=== PATIENT | male | born 1940 | race Caucasian/White ===

== ENCOUNTER 2019-04-06 06:00 | Emergency (ER) | payer MEDICARE, OTHER ==
[~2019-04-06] VITALS: Ht 172.7 cm; Wt 78.6 kg
[~2019-04-06 06:00] MED LIST: ALLO100T PO; AMLO10TA13 PO; ASPI-1053 PO; COLC0.6T69 PO; CYCL-1 PO; FURO-150 PO; METO-467 PO; NITR0.4T51 SL; SIMV-42 PO; TICA90TA PO
--- NOTE | 2019-04-06 07:13 | NUR ---
Attempted PIV for blood draw x2 without success. Called laboratory; clinical laboratory technologist to come draw labs.
[2019-04-06 07:38] LABS: BASOPHILS # (AUTO) 0.1 X10'3 (0-0.2); BASOPHILS % (AUTO) 0.7 % (0-1); EOSINOPHILS # (AUTO) 0.4 X10'3 (0-0.9); EOSINOPHILS % (AUTO) 3.3 % (0-6); HEMATOCRIT 43.3 % (42.0-52.0); HEMOGLOBIN 14.8 g/dl (14.0-17.9); LYMPHOCYTES # (AUTO) 1.5 X10'3 (1.1-4.8); LYMPHOCYTES % (AUTO) 13.9 % (21-51); MEAN CORPUSCULAR HEMOGLOBIN 31.6 PG (27.0-31.0); MEAN CORPUSCULAR HGB CONC 34.2 g/dL (33.0-36.5); MEAN CORPUSCULAR VOLUME 92.6 FL (78-98); MEAN PLATELET VOLUME 8.6 FL (7.4-10.4); MONOCYTES # (AUTO) 0.6 X10'3 (0-0.9); MONOCYTES % (AUTO) 5.7 % (2-12); NEUTROPHILS # (AUTO) 8.1 X10'3 (1.8-7.7); NEUTROPHILS % (AUTO) 76.4 % (42-75); PLATELET COUNT 178 X10'3 (140-440); RED BLOOD COUNT 4.67 X10'6 (4.70-6.10); RED CELL DISTRIBUTION WIDTH 14.4 % (11.5-14.5); WHITE BLOOD COUNT 10.7 X10'3 (4.5-11.0)
[2019-04-06 07:48] LABS: ALANINE AMINOTRANSFERASE 43 U/L (12-78); ALBUMIN 3.7 G/DL (3.4-5.0); ALBUMIN/GLOBULIN RATIO 1.1 (1.1-1.5); ALKALINE PHOSPHATASE 88 IU/L (46-116); ANION GAP 11 (8-16); ASPARTATE AMINO TRANSFERASE 33 U/L (10-37); BILIRUBIN,TOTAL 0.6 MG/DL (0.1-1.0); BLOOD UREA NITROGEN 16 MG/DL (7-18); BUN/CREATININE RATIO 12.2 (5.4-32.0); CALCIUM 8.7 MG/DL (8.5-10.1); CHLORIDE 106 MMOL/L (99-107); CREATININE 1.31 MG/DL (0.60-1.10); GLUCOSE 124 MG/DL (70-104); POTASSIUM 4.4 MMOL/L (3.5-5.1); SODIUM 142 MMOL/L (135-145); TOTAL CARBON DIOXIDE 24.8 MMOL/L (24-32); TOTAL PROTEIN 7.2 G/DL (6.4-8.2); eGFR 53 ML/MIN
[2019-04-06 08:36] LABS: D-DIMER 1.32 MG/L FEU (0-0.50)
[2019-04-06] MEDS ORDERED: iohexol 350MG/ML 100ml bottle IV ONE (09:15)
--- NOTE | 2019-04-06 09:24 | NUR ---
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
[2019-04-06] MEDS ORDERED: FURO-150 PO (09:31)
--- NOTE | 2019-04-06 09:38 | NUR ---
pt returns from ct
[2019-04-06 10:43] VITALS: BP 183/97
== END 2019-04-06 10:48 | disposition home or self-care (01) ==
LOC: ER 06:01
DX: I48.91 Unspecified atrial fibrillation (principal); M54.6 Pain in thoracic spine; E78.00 Pure hypercholesterolemia, unspecified; I10 Essential (primary) hypertension; I25.2 Old myocardial infarction; G89.29 Other chronic pain; Z95.1 Presence of aortocoronary bypass graft; Z79.82 Long term (current) use of aspirin; Z79.899 Other long term (current) drug therapy
CPT/HCPCS: 36415; 71045; 71275; 80053; 83880; 84145; 84484; 85025; 85379; 93005; 99284; Q9967

== ENCOUNTER 2020-05-03 07:58 | Day surgery (SDC) | payer OTHER ==
[~2020-05-03] VITALS: Ht 172.7 cm; Wt 74.0 kg
[~2020-05-03 07:58] MED LIST changes: +APIX5TAB3 PO; -ASPI-1053 PO; -COLC0.6T69 PO; +COLC0.6T72 PO; -CYCL-1 PO
[2020-05-03 08:20] VITALS: BP 139/81
[2020-05-03 08:30] VITALS: BP 139/81
[2020-05-03 09:30] VITALS: BP 173/71
[2020-05-03 09:45] VITALS: BP 131/98
[2020-05-03 10:00] VITALS: BP 152/69
[2020-05-03 10:15] VITALS: BP 134/81
[2020-05-03 10:57] LABS: GLUCOSE,BODY FLUID 101 MG/DL; LDH,BODY FLUID 129 U/L; TOTAL PROTEIN,BODY FLUID 3.5 G/DL
[2020-05-03 11:39] LABS: BFSOURCE RIGHT PLEURAL FLD
[2020-05-03 11:46] LABS: EOSINOPHILS,BODY FLUID 1 %; LYMPHOCYTES,BODY FLUID 83 %; MONOCYTES,BODY FLUID 7 %; NEUTROPHILS,BODY FLUID 9 %
[2020-05-03 11:48] LABS: BFAPPEAR HAZY
[2020-05-03 11:49] LABS: BF RBC COUNT 2150 /CU MM; BF WBC COUNT 1090 /CU MM (0-1000); BFCOLOR YELLOW; BFVOLUME 50 ML
== END 2020-05-03 10:18 | disposition home or self-care (01) ==
LOC: SSTAY O 07:58
PROVIDERS: ATTEND Radiology Vascular & Interventional Radiology
DX: J90 Pleural effusion, not elsewhere classified (principal); I25.10 Atherosclerotic heart disease of native coronary artery without angina pectoris; I10 Essential (primary) hypertension; E78.00 Pure hypercholesterolemia, unspecified; I25.2 Old myocardial infarction; G89.29 Other chronic pain; M10.9 Gout, unspecified; Z95.1 Presence of aortocoronary bypass graft; Z79.01 Long term (current) use of anticoagulants; Z79.899 Other long term (current) drug therapy; Z72.89 Other problems related to lifestyle; Z87.891 Personal history of nicotine dependence; Z98.890 Other specified postprocedural states
CPT/HCPCS: 32555; 71045; 82945; 83615; 83986; 84157; 89051

== ENCOUNTER 2020-06-14 08:26 | Day surgery (SDC) | payer OTHER ==
[~2020-06-14] VITALS: Ht 172.7 cm; Wt 72.7 kg
[~2020-06-14 08:26] MED LIST changes: -COLC0.6T72 PO; -NITR0.4T51 SL; -TICA90TA PO
[2020-06-14 08:48] VITALS: BP 128/62
[2020-06-14] MEDS ORDERED: APIX5TAB5 PO (09:01)
[2020-06-14] MEDS ORDERED: albumin 25% 100mL bottle x 1 IV PRN (09:20)
[2020-06-14 09:30] VITALS: BP 151/85
[2020-06-14 09:38] VITALS: BP 150/74
[2020-06-14 09:45] VITALS: BP 129/53
[2020-06-14 10:00] VITALS: BP 150/47
[2020-06-14 10:17] VITALS: BP 146/51
== END 2020-06-14 10:26 | disposition home or self-care (01) ==
LOC: SSTAY O 08:26
PROVIDERS: ATTEND Radiology Vascular & Interventional Radiology
DX: J90 Pleural effusion, not elsewhere classified (principal); I10 Essential (primary) hypertension; I25.10 Atherosclerotic heart disease of native coronary artery without angina pectoris; E78.5 Hyperlipidemia, unspecified; E78.00 Pure hypercholesterolemia, unspecified; I25.2 Old myocardial infarction; G89.29 Other chronic pain; M54.9 Dorsalgia, unspecified; M10.9 Gout, unspecified; Z87.891 Personal history of nicotine dependence; Z72.89 Other problems related to lifestyle; Z79.899 Other long term (current) drug therapy; Z98.890 Other specified postprocedural states; Z95.1 Presence of aortocoronary bypass graft
CPT/HCPCS: 32555; 71045

== ENCOUNTER 2020-09-18 14:16 | Outpatient (CLI) | payer MEDICARE, OTHER ==
[~2020-09-18] VITALS: Ht 170.2 cm; Wt 79.4 kg
[~2020-09-18 14:16] MED LIST changes: -APIX5TAB3 PO; +APIX5TAB5 PO
[2020-09-18 14:48] LABS: ABG BASE EXCESS -0.3 mmol/L (-2.0-2.0); ABG HCO3 21.6 mmol/L (22.0-26.0); ABG OXYGEN SATURATION 95.7 % (94-97); ABG PCO2 (T) 28.4 mmHg (35.0-48.0); ALLEN'S TEST POSITIVE; FCOHb 0.8 % (0.0-3.9); FMetHb 0.1 % (0.0-1.5); FO2Hb 94.8 % (94-97); TOTAL HEMOGLOBIN 14.6 G/dl (14.0-18.0)
[2020-09-18] MEDS ORDERED: albuterol 2.5 MG/3 ML nebule NEB ONE (15:50)
== END 2020-09-18 23:59 | disposition home or self-care (01) ==
LOC: RT 14:16
PROVIDERS: ATTEND Internal Medicine Pulmonary Disease
DX: R06.02 Shortness of breath (principal)
CPT/HCPCS: 36600; 82803; 85018; 94060; 94727; 94729; 94760

== ENCOUNTER 2020-11-14 07:25 | Emergency (ER) | payer OTHER, MEDICARE ==
[~2020-11-14] VITALS: Ht 172.7 cm; Wt 70.5 kg
--- NOTE | 2020-11-14 09:02 | NUR ---
Unable to start IV, labs were obtained. MD Tena informed of inability to start line, received VO may hold off starting line for now.
[2020-11-14 09:17] LABS: BASOPHILS # (AUTO) 0.1 X10'3 (0-0.2); BASOPHILS % (AUTO) 0.7 % (0-1); EOSINOPHILS # (AUTO) 0.2 X10'3 (0-0.9); EOSINOPHILS % (AUTO) 2.4 % (0-6); HEMATOCRIT 42.6 % (42.0-52.0); HEMOGLOBIN 14.1 g/dl (14.0-17.9); LYMPHOCYTES # (AUTO) 0.9 X10'3 (1.1-4.8); LYMPHOCYTES % (AUTO) 11.3 % (21-51); MEAN CORPUSCULAR HEMOGLOBIN 29.9 PG (27.0-31.0); MEAN CORPUSCULAR HGB CONC 33.2 g/dL (33.0-36.5); MEAN CORPUSCULAR VOLUME 89.9 FL (78-98); MEAN PLATELET VOLUME 8.1 FL (7.4-10.4); MONOCYTES # (AUTO) 0.6 X10'3 (0-0.9); MONOCYTES % (AUTO) 7.5 % (2-12); NEUTROPHILS # (AUTO) 6.3 X10'3 (1.8-7.7); NEUTROPHILS % (AUTO) 78.1 % (42-75); PLATELET COUNT 204 X10'3 (140-440); RED BLOOD COUNT 4.73 X10'6 (4.70-6.10); RED CELL DISTRIBUTION WIDTH 18.1 % (11.5-14.5)
[2020-11-14 09:28] LABS: ALBUMIN 3.3 G/DL (3.4-5.0); ANION GAP 11 (8-16); BLOOD UREA NITROGEN 15 MG/DL (7-18); BUN/CREATININE RATIO 12.1 (5.4-32.0); CALCIUM 8.8 MG/DL (8.5-10.1); CHLORIDE 107 MMOL/L (99-107); CREATININE 1.24 MG/DL (0.60-1.10); GLUCOSE 102 MG/DL (70-104); POTASSIUM 4.4 MMOL/L (3.5-5.1); SODIUM 141 MMOL/L (135-145); TOTAL CARBON DIOXIDE 22.6 MMOL/L (24-32); eGFR 56 ML/MIN
[2020-11-14] MEDS ORDERED: albuterol 2.5 MG/3 ML nebule NEB ONE (09:45)
[2020-11-14] MEDS ORDERED: albuterol 2.5 MG/3 ML nebule ONE (10:08)
[2020-11-14] MEDS ORDERED: ALBU8HFA PO (10:24)
[2020-11-14 10:41] VITALS: BP 139/60
== END 2020-11-14 10:51 | disposition home or self-care (01) ==
LOC: ER 07:25
DX: R06.02 Shortness of breath (principal); Z20.822 Contact with and (suspected) exposure to COVID-19; J90 Pleural effusion, not elsewhere classified; I25.10 Atherosclerotic heart disease of native coronary artery without angina pectoris; E78.00 Pure hypercholesterolemia, unspecified; I10 Essential (primary) hypertension; I25.2 Old myocardial infarction; G89.29 Other chronic pain; M10.9 Gout, unspecified; Z98.890 Other specified postprocedural states; Z72.89 Other problems related to lifestyle; Z79.899 Other long term (current) drug therapy
CPT/HCPCS: 36415; 71045; 80048; 84484; 85025; 87635; 93005; 93308; 94640; 99285; C9803; 94760

== ENCOUNTER 2020-11-28 03:27 | Inpatient (IN) | payer OTHER, MEDICARE ==
[~2020-11-28] VITALS: Ht 175.3 cm; Wt 77.2 kg
[~2020-11-28 03:27] MED LIST changes: +ALBU8HFA PO
--- NOTE | 2020-11-28 04:00 | NUR ---
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 Addendum: 11/28/20 at 0417 by SRINIVAS PT IS IN ATRIAL FIB IN 50-60 RANGE CONSISTENTLY; TAKES BLOOD THINNER
[2020-11-28 04:16] LABS: ALANINE AMINOTRANSFERASE 22 U/L (12-78); ALBUMIN 3.2 G/DL (3.4-5.0); ALBUMIN/GLOBULIN RATIO 0.8 (1.1-1.5); ALKALINE PHOSPHATASE 131 IU/L (46-116); ANION GAP 10 (8-16); ASPARTATE AMINO TRANSFERASE 29 U/L (10-37); BILIRUBIN,TOTAL 0.6 MG/DL (0.1-1.0); BLOOD UREA NITROGEN 17 MG/DL (7-18); BUN/CREATININE RATIO 12.8 (5.4-32.0); CALCIUM 8.7 MG/DL (8.5-10.1); CHLORIDE 109 MMOL/L (99-107); CREATININE 1.33 MG/DL (0.60-1.10); GLUCOSE 122 MG/DL (70-104); POTASSIUM 4.3 MMOL/L (3.5-5.1); SODIUM 142 MMOL/L (135-145); TOTAL CARBON DIOXIDE 23.3 MMOL/L (24-32); TOTAL PROTEIN 7.1 G/DL (6.4-8.2); eGFR 52 ML/MIN
[2020-11-28 04:20] LABS: HEMOGLOBIN 13.2 g/dl (14.0-17.9); RED BLOOD COUNT 4.48 X10'6 (4.70-6.10); WHITE BLOOD COUNT 8.5 X10'3 (4.5-11.0)
[2020-11-28 04:21] LABS: HEMATOCRIT 40.9 % (42.0-52.0); MEAN CORPUSCULAR HEMOGLOBIN 29.4 PG (27.0-31.0); MEAN CORPUSCULAR HGB CONC 32.2 g/dL (33.0-36.5); MEAN CORPUSCULAR VOLUME 91.4 FL (78-98); MEAN PLATELET VOLUME 7.8 FL (7.4-10.4); NEUTROPHILS % (AUTO) 76.5 % (42-75); PLATELET COUNT 219 X10'3 (140-440)
[2020-11-28 04:22] LABS: BASOPHILS % (AUTO) 0.7 % (0-1); EOSINOPHILS % (AUTO) 1.5 % (0-6); LYMPHOCYTES # (AUTO) 1.2 X10'3 (1.1-4.8); LYMPHOCYTES % (AUTO) 14.5 % (21-51); MONOCYTES % (AUTO) 6.8 % (2-12); NEUTROPHILS # (AUTO) 6.5 X10'3 (1.8-7.7)
[2020-11-28 04:23] LABS: MAGNESIUM 2.1 MG/DL (1.5-2.4); TROPONIN I < 0.04 NG/ML (0.0-0.05)
[2020-11-28 04:26] LABS: BASOPHILS # (AUTO) 0.1 X10'3 (0-0.2); EOSINOPHILS # (AUTO) 0.1 X10'3 (0-0.9); MONOCYTES # (AUTO) 0.6 X10'3 (0-0.9)
[2020-11-28] MEDS ORDERED: furosemide 10 MG/1 ML 10ml inj IV ONE (06:10)
[2020-11-28] MEDS ORDERED: morphine 2 MG/ML inj. syringe IV PRN ×2 (07:30)
[2020-11-28] MEDS ORDERED: HYDROcodone/acetaminophen 10/325mg tab PO PRN (07:30)
[2020-11-28] MEDS ORDERED: potassium Cl 40MEQ/1/2NS 520ml 520 ML IV PRN ×2 (07:30)
[2020-11-28] MEDS ORDERED: potassium Cl 20 mEq SR tablet PO PRN ×2 (07:30)
[2020-11-28] MEDS ORDERED: bisacodyl 10mg suppository rectal RC PRN (07:30)
[2020-11-28] MEDS ORDERED: magnesium 4gm in 100ml NS 100 ML IV PRN (07:30)
[2020-11-28] MEDS ORDERED: magnesium 2GM in 50ml NS 50 ML IV PRN (07:30)
[2020-11-28] MEDS ORDERED: ondansetron/PF 4mg/2ml inj IV PRN (07:30)
[2020-11-28] MEDS ORDERED: acetaminophen 325mg tablet PO PRN ×2 (07:30)
[2020-11-28] MEDS ORDERED: albuterol 2.5 MG/3 ML nebule NEB PRN (07:30)
[2020-11-28] MEDS ORDERED: HYDROcodone/acetaminophen 5mg/325mg tablet PO PRN (07:30)
[2020-11-28] MEDS ORDERED: PERFLUTREN PROTEIN-A MICROSPHR (Optison) 0.22 MG/ML 3ML VIAL IV ONE (07:30)
[2020-11-28] MEDS: K and/or MAG REPLACEMENT MC SCH ×2 (08:00→20:00)
[2020-11-28] MEDS: metoprolol tartrate 50mg tablet PO SCH (08:00)
[2020-11-28] MEDS: allopurinol 100mg tablet PO SCH (10:31)
[2020-11-28] MEDS: amLODIPine 5mg tablet PO SCH (10:31)
[2020-11-28] MEDS: atorvastatin 10mg tablet PO SCH (10:32)
[2020-11-28] MEDS: docusate sod 100mg capsule PO SCH ×2 (10:33→20:52)
[2020-11-28] MEDS: furosemide 10 MG/1 ML 10ml inj IV SCH ×2 (10:34→20:00)
[2020-11-28] MEDS ORDERED: POTA10TA PO (12:25)
--- NOTE | 2020-11-28 14:44 | NUR ---
Patient in room ED 13. I have received report from Shahida HOWELL and had the opportunity to ask questions and assume patient care.
[2020-11-28 16:13] VITALS: BP 152/69
[2020-11-28 18:00] VITALS: BP 99/66
--- NOTE | 2020-11-28 18:08 | NUR ---
Problems reprioritized. Patient report given, questions answered & plan of care reviewed with Wendy HOWELL.
--- NOTE | 2020-11-28 18:25 | NUR ---
Patient in room U 3012. I have received report from Salty HOWELL and had the opportunity to ask questions and assume patient care. Addendum: 11/28/20 at 1831 by Wendy Loepz RN CORRECTION-REPORT FROM JAVID HOWELL
[2020-11-28] MEDS: ipratropium/albuterol 3ml nebule NEB PRN (20:04)
[2020-11-29 02:00] VITALS: BP 104/65
--- NOTE | 2020-11-29 05:48 | NUR ---
[id number] Chung Hoover-xiao tx requested please. Wendy castro [phone]
[2020-11-29] MEDS: ipratropium/albuterol 3ml nebule NEB PRN (05:54)
[2020-11-29 06:00] VITALS: BP 118/67
[2020-11-29 06:40] LABS: BASOPHILS # (AUTO) 0.1 X10'3 (0-0.2); BASOPHILS % (AUTO) 0.6 % (0-1); EOSINOPHILS # (AUTO) 0.1 X10'3 (0-0.9); EOSINOPHILS % (AUTO) 1.3 % (0-6); HEMOGLOBIN 14.5 g/dl (14.0-17.9); LYMPHOCYTES # (AUTO) 1.1 X10'3 (1.1-4.8); LYMPHOCYTES % (AUTO) 11.3 % (21-51); MEAN CORPUSCULAR HGB CONC 33.1 g/dL (33.0-36.5); MEAN CORPUSCULAR VOLUME 90.6 FL (78-98); MEAN PLATELET VOLUME 8.5 FL (7.4-10.4); MONOCYTES # (AUTO) 0.8 X10'3 (0-0.9); MONOCYTES % (AUTO) 8.2 % (2-12); NEUTROPHILS # (AUTO) 7.4 X10'3 (1.8-7.7); NEUTROPHILS % (AUTO) 78.6 % (42-75); PLATELET COUNT 250 X10'3 (140-440); RED BLOOD COUNT 4.85 X10'6 (4.70-6.10); RED CELL DISTRIBUTION WIDTH 17.8 % (11.5-14.5); WHITE BLOOD COUNT 9.4 X10'3 (4.5-11.0)
--- NOTE | 2020-11-29 06:41 | NUR ---
Problems reprioritized. Patient report given, questions answered & plan of care reviewed with MICHELLE HOWELL.
[2020-11-29 06:58] LABS: ALANINE AMINOTRANSFERASE 24 U/L (12-78); ALBUMIN 3.5 G/DL (3.4-5.0); ALBUMIN/GLOBULIN RATIO 0.8 (1.1-1.5); ALKALINE PHOSPHATASE 141 IU/L (46-116); ANION GAP 11 (8-16); ASPARTATE AMINO TRANSFERASE 26 U/L (10-37); BILIRUBIN,TOTAL 1.2 MG/DL (0.1-1.0); BLOOD UREA NITROGEN 14 MG/DL (7-18); BUN/CREATININE RATIO 10.7 (5.4-32.0); CALCIUM 9.6 MG/DL (8.5-10.1); CHLORIDE 104 MMOL/L (99-107); CREATININE 1.31 MG/DL (0.60-1.10); GLUCOSE 106 MG/DL (70-104); MAGNESIUM 2.3 MG/DL (1.5-2.4); POTASSIUM 3.4 MMOL/L (3.5-5.1); SODIUM 142 MMOL/L (135-145); TOTAL CARBON DIOXIDE 26.7 MMOL/L (24-32); TOTAL PROTEIN 7.9 G/DL (6.4-8.2); eGFR 53 ML/MIN
--- NOTE | 2020-11-29 07:14 | NUR ---
Patient in room PCU 3012. I have received report from DANTE ARROYO, and had the opportunity to ask questions and assume patient care.
[2020-11-29] MEDS: furosemide 10 MG/1 ML 10ml inj IV SCH (07:53)
[2020-11-29] MEDS: atorvastatin 10mg tablet PO SCH (07:57)
[2020-11-29] MEDS: allopurinol 100mg tablet PO SCH (07:58)
[2020-11-29] MEDS: docusate sod 100mg capsule PO SCH (07:58)
[2020-11-29] MEDS: K and/or MAG REPLACEMENT MC SCH (08:00)
[2020-11-29] MEDS: metoprolol tartrate 50mg tablet PO SCH (08:00)
[2020-11-29] MEDS ORDERED: FURO-150 PO (10:05)
[2020-11-29 11:00] VITALS: BP 121/60
--- NOTE | 2020-11-29 12:13 | NUR ---
O2 Sat at rest on room air:__94 _% If below 89%: Recovery O2 Sat at rest on ___LPM:___%:___% via (mask/nasal cannula, etc..) No further documentation is necessary. If O2 Sat did not drop below 89% on room air,ambulate patient on room air. O2 Sat while ambulating on room air:_91__% Recovery O2 Sat while ambulating on ___LPM:___% No further documentation is necessary. If patient does not drop below 89% while ambulating, he/she does not qualify for home O2.
[2020-11-29 12:34] VITALS: BP_SYST 121
[2020-11-29] MEDS: amLODIPine 5mg tablet PO SCH (12:34)
--- NOTE | 2020-11-29 13:00 | NUR ---
PT STABLE FOR DISCHARGE PER MD. PIV REMOVED WITH TIP INTACT, TOLERATED WELL BY PT. TELE BOX REMOVED. DISCHARGE AND FOLLOW UP INSTRUCTIONS REVIEWED WITH PT, APPROPRIATE PAPERWORK SIGNED. PT WHEELED DOWN TO PRIVATE VEHICLE BY STAFF. PT DISCHARGED TO HOME.
== END 2020-11-29 13:00 | disposition home or self-care (01) | DRG 189 ==
LOC: ER 03:27 → ED HOLD 07:36 → PCU 3S 15:47
PROVIDERS: ADMIT Family Medicine; ATTEND Family Medicine
DX: J96.01 Acute respiratory failure with hypoxia (principal); I13.0 Hypertensive heart and chronic kidney disease with heart failure and stage 1 through stage 4 chronic kidney disease, or unspecified chronic kidney disease; I50.22 Chronic systolic (congestive) heart failure; Z20.822 Contact with and (suspected) exposure to COVID-19; E78.00 Pure hypercholesterolemia, unspecified; E78.5 Hyperlipidemia, unspecified; G47.33 Obstructive sleep apnea (adult) (pediatric); G89.29 Other chronic pain; M10.9 Gout, unspecified; M54.9 Dorsalgia, unspecified; K70.30 Alcoholic cirrhosis of liver without ascites; I25.10 Atherosclerotic heart disease of native coronary artery without angina pectoris; I48.0 Paroxysmal atrial fibrillation; J43.2 Centrilobular emphysema; N18.30 Chronic kidney disease, stage 3 unspecified; Z79.01 Long term (current) use of anticoagulants; Z79.899 Other long term (current) drug therapy; I25.2 Old myocardial infarction; Z87.891 Personal history of nicotine dependence; Z95.1 Presence of aortocoronary bypass graft
CPT/HCPCS: 36415; 71045; 71250; 80053; 83735; 83880; 84484; 85025; 87081; 87635; 93005; 93306; 94640; 94660; 94760; 96374; 99285; C9803; G0378; J1940

== ENCOUNTER 2022-05-06 04:33 | Inpatient (IN) | payer OTHER, MEDICARE ==
[~2022-05-06] VITALS: Ht 175.3 cm; Wt 65.0 kg
[~2022-05-06 04:33] MED LIST changes: +ALBU18HF2 INH; -ALBU8HFA PO; +AMOX-101 PO; +DICL100G30 TOP; +DOXY-1 PO; +FLUT1DIS20 INH; -FURO-150 PO; +FURO40TA4 PO; -METO-467 PO; +POTA-82 PO; +SIMV-342 PO; -SIMV-42 PO; +TIOT4MIS5 PO
[2022-05-06 06:25] LABS: BASOPHILS % (AUTO) 0.3 % (0-1); EOSINOPHILS % (AUTO) 0.1 % (0-6); HEMATOCRIT 28.5 % (42.0-52.0); HEMOGLOBIN 9.5 g/dl (14.0-17.9); LYMPHOCYTES # (AUTO) 0.7 X10'3 (1.1-4.8); LYMPHOCYTES % (AUTO) 6.4 % (21-51); MEAN CORPUSCULAR HGB CONC 33.3 g/dL (33.0-36.5); MEAN CORPUSCULAR VOLUME 87.3 FL (78-98); MEAN PLATELET VOLUME 7.1 FL (7.4-10.4); MONOCYTES # (AUTO) 0.7 X10'3 (0-0.9); MONOCYTES % (AUTO) 6.3 % (2-12); NEUTROPHILS # (AUTO) 9.2 X10'3 (1.8-7.7); NEUTROPHILS % (AUTO) 86.9 % (42-75); PLATELET COUNT 270 X10'3 (140-440); RED BLOOD COUNT 3.26 X10'6 (4.70-6.10); RED CELL DISTRIBUTION WIDTH 18.7 % (11.5-14.5); WHITE BLOOD COUNT 10.6 X10'3 (4.5-11.0)
[2022-05-06 06:44] LABS: ALANINE AMINOTRANSFERASE 22 U/L (12-78); ALBUMIN/GLOBULIN RATIO 0.5 (1.1-1.5); ALKALINE PHOSPHATASE 102 IU/L (46-116); ANION GAP 10 (8-16); ASPARTATE AMINO TRANSFERASE 28 U/L (10-37); BILIRUBIN,TOTAL 0.5 MG/DL (0.1-1.0); BLOOD UREA NITROGEN 22 MG/DL (7-18); BUN/CREATININE RATIO 17.5 (5.4-32.0); CALCIUM 8.3 MG/DL (8.5-10.1); CHLORIDE 100 MMOL/L (99-107); CREATININE 1.26 MG/DL (0.60-1.10); GLUCOSE 115 MG/DL (70-104); POTASSIUM 4.2 MMOL/L (3.5-5.1); SODIUM 134 MMOL/L (135-145); TOTAL CARBON DIOXIDE 24.4 MMOL/L (24-32); TOTAL PROTEIN 6.1 G/DL (6.4-8.2); eGFR 55 ML/MIN
[2022-05-06] MEDS ORDERED: furosemide 10 MG/1 ML 10ml inj IV ONE (07:25)
[2022-05-06] MEDS ORDERED: ondansetron/PF 4mg/2ml inj IV PRN (07:40)
[2022-05-06] MEDS ORDERED: magnesium 4gm in 100ml NS 100 ML IV PRN (07:40)
[2022-05-06] MEDS ORDERED: magnesium Cl slow-release 64mg tablet PO PRN (07:40)
[2022-05-06] MEDS ORDERED: acetaminophen 325mg tablet PO PRN ×2 (07:40)
[2022-05-06] MEDS ORDERED: morphine 2 MG/ML inj. syringe IV PRN (07:40)
[2022-05-06] MEDS ORDERED: potassium Cl 20 mEq SR tablet PO PRN ×2 (07:40)
[2022-05-06] MEDS ORDERED: potassium Cl 40MEQ/1/2NS 520ml 520 ML IV PRN (07:40)
[2022-05-06] MEDS ORDERED: HYDROcodone/acetaminophen 5mg/325mg tablet PO PRN (07:40)
[2022-05-06] MEDS: furosemide 20 MG/2 ML vial IV SCH ×2 (07:52→19:16)
[2022-05-06] MEDS: heparin, porcine 5000 units/ml vial SQ SCH ×2 (09:31→19:17)
[2022-05-06] MEDS: albuterol 2.5 MG/3 ML nebule NEB SCH ×3 (09:52→19:44)
[2022-05-06 13:28] VITALS: BP 109/65
[2022-05-06 16:10] VITALS: BP 116/61
--- NOTE | 2022-05-06 16:10 | NUR ---
PAGE SENT [id number], JAGDEEP MONRYO, PT HAS CPAP FROM HOME AT BEDSIDE. THANK YOU, MICHELLE
[2022-05-06] MEDS ORDERED: FURO40TA4 PO (17:32)
[2022-05-06] MEDS ORDERED: KEN0.1O TP (17:33)
--- NOTE | 2022-05-06 18:24 | NUR ---
Problems reprioritized. Patient report given, questions answered & plan of care reviewed with DANTE ZACARIAS.
[2022-05-06] MEDS ORDERED: albuterol 2.5 MG/3 ML nebule NEB PRN (18:45)
[2022-05-06 18:56] VITALS: BP 125/58
[2022-05-06] MEDS: budesonide 0.5mg/2ml UD nebule IH SCH (19:44)
[2022-05-06] MEDS: ipratropium/albuterol 3ml nebule NEB SCH (19:44)
[2022-05-06] MEDS: atorvastatin 10mg tablet PO SCH (20:22)
[2022-05-06 22:29] VITALS: BP 106/61
[2022-05-07 02:54] VITALS: BP 110/58
[2022-05-07] MEDS: albuterol 2.5 MG/3 ML nebule NEB SCH ×3 (03:00→20:28)
[2022-05-07] MEDS: ipratropium/albuterol 3ml nebule NEB SCH ×4 (03:15→20:28)
[2022-05-07 05:54] LABS: BASOPHILS % (AUTO) 0.6 % (0-1); EOSINOPHILS # (AUTO) 0.1 X10'3 (0-0.9); EOSINOPHILS % (AUTO) 1.4 % (0-6); HEMATOCRIT 29.6 % (42.0-52.0); HEMOGLOBIN 9.9 g/dl (14.0-17.9); LYMPHOCYTES % (AUTO) 14.2 % (21-51); MEAN CORPUSCULAR HEMOGLOBIN 29.2 PG (27.0-31.0); MEAN CORPUSCULAR HGB CONC 33.6 g/dL (33.0-36.5); MEAN CORPUSCULAR VOLUME 86.9 FL (78-98); MEAN PLATELET VOLUME 7.2 FL (7.4-10.4); MONOCYTES # (AUTO) 0.5 X10'3 (0-0.9); MONOCYTES % (AUTO) 7.3 % (2-12); NEUTROPHILS # (AUTO) 5.2 X10'3 (1.8-7.7); NEUTROPHILS % (AUTO) 76.5 % (42-75); PLATELET COUNT 277 X10'3 (140-440); RED CELL DISTRIBUTION WIDTH 18.7 % (11.5-14.5); WHITE BLOOD COUNT 6.8 X10'3 (4.5-11.0)
[2022-05-07 06:06] VITALS: BP 127/67
[2022-05-07 06:06] LABS: ALANINE AMINOTRANSFERASE 22 U/L (12-78); ALBUMIN 2.1 G/DL (3.4-5.0); ALBUMIN/GLOBULIN RATIO 0.5 (1.1-1.5); ALKALINE PHOSPHATASE 103 IU/L (46-116); ANION GAP 6 (8-16); ASPARTATE AMINO TRANSFERASE 27 U/L (10-37); BILIRUBIN,TOTAL 0.6 MG/DL (0.1-1.0); BLOOD UREA NITROGEN 21 MG/DL (7-18); BUN/CREATININE RATIO 17.1 (5.4-32.0); CALCIUM 8.6 MG/DL (8.5-10.1); CHLORIDE 101 MMOL/L (99-107); CREATININE 1.23 MG/DL (0.60-1.10); GLUCOSE 92 MG/DL (70-104); POTASSIUM 3.8 MMOL/L (3.5-5.1); SODIUM 132 MMOL/L (135-145); TOTAL CARBON DIOXIDE 25.3 MMOL/L (24-32); TOTAL PROTEIN 6.3 G/DL (6.4-8.2); eGFR 56 ML/MIN
[2022-05-07] MEDS: budesonide 0.5mg/2ml UD nebule IH SCH ×2 (09:00→20:28)
[2022-05-07] MEDS: heparin, porcine 5000 units/ml vial SQ SCH ×2 (09:34→19:07)
[2022-05-07] MEDS: amLODIPine 5mg tablet PO SCH (09:35)
[2022-05-07] MEDS: furosemide 20 MG/2 ML vial IV SCH ×2 (09:35→19:07)
[2022-05-07 11:04] VITALS: BP 118/86
--- NOTE | 2022-05-07 12:05 | NUR ---
O2 Sat at rest on room air:__96_% If below 89%: Recovery O2 Sat at rest on ___2LPM:___96%:___% via__nc (mask/nasal cannula, etc..) No further documentation is necessary. If O2 Sat did not drop below 89% on room air,ambulate patient on room air. O2 Sat while ambulating on room air:__82_% Recovery O2 Sat while ambulating on __2_LPM:__92_% No further documentation is necessary. If patient does not drop below 89% while ambulating, he/she does not qualify for home O2.
[2022-05-07] MEDS: CefTRIAXone 2gm/D5W 50ml BAG 50 ML IV SCH (12:31)
--- NOTE | 2022-05-07 13:01 | NUR ---
PRESSURE ULCER EDUCATION: DEFINITION: A pressure ulcer is an area of skin that breaks down when you stay in one position too long. The constant pressure against the skin reduces the blood flow to that area and the affected tissue dies. CAUSES: "Being bedridden or in a wheelchair "Fragile skin "Having a chronic condition, such as diabetes or vascular disease "Inability to move certain parts of your body without assistance "Older age "Incontinence of urine or stool SYMPTOMS: "A reddened area that DOES NOT turn white when pressed on - this can be the beginning of a pressure ulcer "A blister, deep sore or a crater - these can be advanced pressure ulcers FIRST AID: "Relieve the pressure on this area "Keep the area clean and dry "Call your primary doctor if you see any of the above symptoms "DO NOT massage the area "DO NOT use a donut shaped or ring shaped pillow- these actually interfere with the blood flow and cause complications PREVENTION: "Check for pressure ulcers everyday "Change position at least every two hours to relieve pressure "Use items that help relieve pressure- pillows, sheepskin, foam padding, and powders. "Keep skin clean and dry "Eat healthy well balanced meals "Exercise daily IF YOU SEE ANY OF THESE SYMPTOMS WHILE IN THE HOSPITAL - TELL YOUR NURSE IMMEDIATELY. IF YOU SEE ANY OF THESE SYMPTOMS WHILE AT HOME OR HAVE ANY QUESTIONS OR CONCERNS ABOUT PRESSURE ULCERS - CALL YOUR PRIMARY DOCTOR IMMEDIATELY. Addendum: 05/07/22 at 1301 by America Mcnamara LVN Amended: Links added.
[2022-05-07 15:11] VITALS: BP 113/64
[2022-05-07 18:00] VITALS: BP 142/58
[2022-05-07] MEDS: atorvastatin 10mg tablet PO SCH (21:09)
[2022-05-07 23:20] VITALS: BP 121/69
[2022-05-08 02:14] VITALS: BP 124/54
[2022-05-08] MEDS: ipratropium/albuterol 3ml nebule NEB SCH ×2 (02:41→10:02)
[2022-05-08] MEDS: albuterol 2.5 MG/3 ML nebule NEB SCH (02:42)
[2022-05-08 07:28] VITALS: BP 115/58
[2022-05-08] MEDS ORDERED: allopurinol 100mg tablet PO SCH (08:00)
[2022-05-08] MEDS: budesonide 0.5mg/2ml UD nebule IH SCH (10:01)
[2022-05-08] MEDS: furosemide 20 MG/2 ML vial IV SCH (10:33)
[2022-05-08] MEDS: heparin, porcine 5000 units/ml vial SQ SCH (10:34)
[2022-05-08] MEDS: amLODIPine 5mg tablet PO SCH (10:35)
[2022-05-08] MEDS: CefTRIAXone 2gm/D5W 50ml BAG 50 ML IV SCH (10:36)
[2022-05-08] MEDS ORDERED: LEVO-65 PO (10:38)
[2022-05-08] MEDS ORDERED: POTA-82 PO (10:38)
[2022-05-08 11:44] LABS: BASOPHILS % (AUTO) 0.4 % (0-1); EOSINOPHILS # (AUTO) 0.1 X10'3 (0-0.9); EOSINOPHILS % (AUTO) 0.7 % (0-6); HEMATOCRIT 34.9 % (42.0-52.0); HEMOGLOBIN 11.3 g/dl (14.0-17.9); LYMPHOCYTES % (AUTO) 11.6 % (21-51); MEAN CORPUSCULAR HEMOGLOBIN 28.8 PG (27.0-31.0); MEAN CORPUSCULAR HGB CONC 32.4 g/dL (33.0-36.5); MEAN CORPUSCULAR VOLUME 88.9 FL (78-98); MEAN PLATELET VOLUME 7.2 FL (7.4-10.4); MONOCYTES # (AUTO) 0.5 X10'3 (0-0.9); MONOCYTES % (AUTO) 5.4 % (2-12); NEUTROPHILS # (AUTO) 7.1 X10'3 (1.8-7.7); NEUTROPHILS % (AUTO) 81.9 % (42-75); PLATELET COUNT 325 X10'3 (140-440); RED BLOOD COUNT 3.93 X10'6 (4.70-6.10); RED CELL DISTRIBUTION WIDTH 19.1 % (11.5-14.5); WHITE BLOOD COUNT 8.7 X10'3 (4.5-11.0)
[2022-05-08 12:01] LABS: ALANINE AMINOTRANSFERASE 21 U/L (12-78); ALBUMIN 2.3 G/DL (3.4-5.0); ALBUMIN/GLOBULIN RATIO 0.5 (1.1-1.5); ALKALINE PHOSPHATASE 117 IU/L (46-116); ANION GAP 11 (8-16); ASPARTATE AMINO TRANSFERASE 37 U/L (10-37); BILIRUBIN,TOTAL 0.4 MG/DL (0.1-1.0); BLOOD UREA NITROGEN 24 MG/DL (7-18); BUN/CREATININE RATIO 21.4 (5.4-32.0); CALCIUM 9.1 MG/DL (8.5-10.1); CHLORIDE 97 MMOL/L (99-107); CREATININE 1.12 MG/DL (0.60-1.10); GLUCOSE 144 MG/DL (70-104); POTASSIUM 4.3 MMOL/L (3.5-5.1); SODIUM 132 MMOL/L (135-145); TOTAL CARBON DIOXIDE 24.2 MMOL/L (24-32); eGFR 63 ML/MIN
--- NOTE | 2022-05-08 14:07 | NUR ---
Pt discharged in stable condition. Didn't want to wait to have picture taken. Midline removed and belongings with pt.
== END 2022-05-08 14:08 | disposition home or self-care (01) | DRG 193 ==
LOC: ER 04:33 → ED HOLD 07:45 → PCU 3S 13:20
PROVIDERS: ADMIT Internal Medicine; ATTEND Internal Medicine
PROC: 5A09357 Assistance with Respiratory Ventilation, Less than 24 Consecutive Hours, Continuous Positive Airway Pressure (ICD-10-PCS; principal; 2022-05-06)
PROC: 5A09357 Assistance with Respiratory Ventilation, Less than 24 Consecutive Hours, Continuous Positive Airway Pressure (ICD-10-PCS; 2022-05-07)
PROC: 5A09357 Assistance with Respiratory Ventilation, Less than 24 Consecutive Hours, Continuous Positive Airway Pressure (ICD-10-PCS; 2022-05-08)
DX: J18.9 Pneumonia, unspecified organism (principal); I21.A1 Myocardial infarction type 2; I50.23 Acute on chronic systolic (congestive) heart failure; I13.0 Hypertensive heart and chronic kidney disease with heart failure and stage 1 through stage 4 chronic kidney disease, or unspecified chronic kidney disease; I50.9 Heart failure, unspecified; D63.8 Anemia in other chronic diseases classified elsewhere; E78.00 Pure hypercholesterolemia, unspecified; G89.29 Other chronic pain; M10.9 Gout, unspecified; M54.9 Dorsalgia, unspecified; S91.101A Unspecified open wound of right great toe without damage to nail, initial encounter; X58.XXXA Exposure to other specified factors, initial encounter; R06.03 Acute respiratory distress; I25.10 Atherosclerotic heart disease of native coronary artery without angina pectoris; I48.0 Paroxysmal atrial fibrillation; J44.9 Chronic obstructive pulmonary disease, unspecified; N18.30 Chronic kidney disease, stage 3 unspecified; Z79.01 Long term (current) use of anticoagulants; I25.2 Old myocardial infarction; Z79.51 Long term (current) use of inhaled steroids; Z82.49 Family history of ischemic heart disease and other diseases of the circulatory system; Z87.891 Personal history of nicotine dependence; Z95.1 Presence of aortocoronary bypass graft; Z79.899 Other long term (current) drug therapy; Y93.89 Activity, other specified; Y92.89 Other specified places as the place of occurrence of the external cause; Y99.8 Other external cause status
CPT/HCPCS: 36415; 36569; 71045; 80053; 83605; 83880; 84484; 85025; 85610; 87040; 87081; 93005; 94640; 94760; 96374; 97116; 97161; 99285; A4620; A6212; C1751; G0378; J0696; J1644; J1940